=== PATIENT | female | born 1970 | race Hispanic/Latino ===

== ENCOUNTER 2018-09-16 11:05 | Day surgery (SDC) | payer OTHER ==
--- NOTE | 2018-09-16 11:52 | Anesthesia Day of Surgery ---
Anesthesia Day of Surgery - Day of Surgery Patient Examined: Yes Patient H&P Reviewed: Yes Patient is NPO: Yes
--- NOTE | 2018-09-16 11:52 | Anesthesia Consultation ---
Anesthesia Consult and Med Hx Date of service: 09/16/18 - Airway Anesthetic Teeth Evaluation: Good ROM Head & Neck: Adequate Mental/Hyoid Distance: Adequate Mallampati Class: Class II Intubation Access Assessment: Probably Good - Pre-Operative Health Status ASA Pre-Surgery Classification: ASA2 Proposed Anesthetic Plan: MAC - Pulmonary Hx Smoking: Yes (former smoker) - Gastrointestinal Hx Ulcer: No (h/o colitis)
[2018-09-16] MEDS ORDERED: DIPRIVAN 10 MG/ML IV ONE ×2 (11:57)
--- NOTE | 2018-09-16 12:48 | Procedure Note ---
Date of procedure: 09/16/18 Pre-op diagnosis: Diarrhea/ Ulcerative colitis Post-op diagnosis: other (Ulcerative Colitis (Procto-Sigmoiditis)/ R/O Ileitis/ Mild to Moderate Internal Hemorrhoid) Procedure: Colonoscopy with Biopsy Anesthesia: MAC Surgeon: OMAR LEONE Estimated blood loss: minimal Pathology: list Specimen disposition: to lab Condition: stable Disposition: same day (Avoid aspirin and NSAID for 5 days. continue with present treatment and Rowasa Enema. Follow up in 1 to 2 weeks ([phone]).)
[2018-09-16] MEDS ORDERED: NACL 0.9% 1000 ML 1,000 ML IV SCH (13:00)
[2018-09-16 13:03] VITALS: BP 163/94
--- NOTE | 2018-09-16 13:49 | Operative Report ---
COLONOSCOPY WITH BIOPSY INDICATIONS: This is a 47-year-old white female who has lately been having some worsening of her diarrhea. She had a colonoscopy done back in May last year, which showed presence of pancolitis but no ileitis. She had initially been treated with prednisone by another physician and was placed on Lialda with some improvement of her symptoms. Colonoscopy was done to assess the extent and the severity of the colitis as well as the persistence of the colitis. SOCIAL HISTORY: She denies any history of smoking, rarely drinks alcohol. DESCRIPTION OF PROCEDURE: Procedure was done after getting informed consent with MAC anesthesia. Initial rectal exam was unremarkable. Instrument was passed through the rectum onto the cecum, which was identified by ileocecal valve and the appendiceal orifice. Visualization was fair. There was a pool of dark fluid in the proximal cecum, which was suctioned out. The terminal ileum was intubated and showed normal mucosa. There was no endoscopic evidence of ileitis. Biopsy was done to assess for possible ileitis. Cecum, ascending colon, and the transverse colon showed normal mucosa. Biopsies were done from the proximal colon, the transverse colon as well as the left colon to assess for the severity of the colitis. In the rectum and distal sigmoid, there was inflammation, most pronounced in the rectum, possibly secondary to ulcerative colitis and this was also biopsied and photodocumentation was obtained and there was some mild to moderate internal hemorrhoids on the retroverted view. There was minimal bleeding from the biopsy sites. No complications associated with the procedure. ASSESSMENT: History of possible colitis involving the proctosigmoid area, mild to moderate internal hemorrhoids. Biopsy done to rule out for possible ileitis. PLAN: To continue treatment with Lialda. Rowasa enemas will also be used as part of her treatment regimen. She will be asked to avoid aspirin and aspirin-related products for the next few days and follow up in the office in 1-2 weeks' time. Again, there was minimal bleeding from the biopsy sites. No complications associated with the procedure. RN, Sarah Cash, was in the room throughout the entirety of the procedure. JOB# [id number] SANDRO/MIKE
== END 2018-09-16 11:06 | disposition home or self-care (01) ==
LOC: GIO 11:05
DX: K64.8 Other hemorrhoids (principal); K51.00 Ulcerative (chronic) pancolitis without complications; R19.7 Diarrhea, unspecified; K63.89 Other specified diseases of intestine; Z87.891 Personal history of nicotine dependence; Z91.013 Allergy to seafood; Z79.899 Other long term (current) drug therapy; Z90.710 Acquired absence of both cervix and uterus; Z98.891 History of uterine scar from previous surgery
CPT/HCPCS: 45380; 88305; J2704; J7030